=== PATIENT | female | born 1950 | race Caucasian/White ===

== ENCOUNTER 2022-02-13 17:01 | Inpatient (IN) | payer MEDICARE, MEDICAID, SELFPAY ==
[2022-02-13 19:28] VITALS: BP 121/82; PULSE 118; RESP 16; TEMP 36.6; O2SAT 98
[2022-02-13 19:33] VITALS: BMI 24.5
[2022-02-13] MEDS: Phenytoin Sodium Extended 100 MG CAPSULE 300 MG PO (20:45)
[2022-02-13] MEDS: Topiramate 25 MG TABLET 75 MG PO (20:46)
[2022-02-13] MEDS: risperiDONE 0.5 MG TABLET PO (20:46)
[2022-02-13] MEDS: Divalproex Sodium ER 500 MG TAB.ER.24H 1000 MG PO (20:46)
--- NOTE | 2022-02-13 21:59 | PC.ADMIT ---
71 yr old female with a hx of Major Depressive Disorder, anorexia and epilepsy, arrived on the unit at approx. 1714 via stretcher from [facility] ED. She had been sent to [facility] from [facility] d/t concerns regarding depression and possible failure to thrive. They reported that the pt had very poor appetite, had lost weight, felt tired and weak, not leaving her bed often. The pt identified feeling isolated during the COVID pandemic and had continued to stay in bed most of the time. They also reported that her sleep had been poor. Pt signed a CV before entry to the unit. The pt appeared anxious, immediately letting this RN know that she had many medical problems that needed to be addressed more than psych. When offered a drink she stated, water doesn't taste good, juice is too acidic and isabella inge is too strong. For a snack, the pt stated that she had many food allergies and needed to be put on a special diet. The pt also reported hx of HTN, seizures that usually occur at night, sleep apnea but denied using a CPAP, telling this RN, I have been sleeping well without it. Did not have one in her belongings. The pt was cooperative with the admission process, signing the related paperwork. VS WNL. Pt denied SI/HI/AVH at the time. Prior to the admission, the Dr was notified, admission orders were obtained and nurse to nurse was done.Treatment plan was initiated. Pt is on 15 min safety checks.Admits to feeling safe on the unit at this time.
[2022-02-14] MEDS: Omeprazole 20 MG CAPSULE.DR PO (06:34)
[2022-02-14 07:00] VITALS: BP 116/71; PULSE 81; RESP 16; TEMP 36.3; O2SAT 96
[2022-02-14 07:29] LABS: Ammonia 27 umol/L (13-55)
[2022-02-14 07:39] LABS: Estimated Average Glucose 91 mg/dL; Hemoglobin A1c % 4.8 %
[2022-02-14 07:43] LABS: Alanine Aminotransferase 13 U/L (0-31); Alkaline Phosphatase 108 U/L (39-117); Aspartate Amino Transferase 19 U/L (5-31); Bilirubin Direct < 0.2 mg/dL (0.0-0.5); Bilirubin Total 0.2 mg/dL (0.0-1.0); Cholesterol 282 mg/dL; HDL Cholesterol 66 mg/dL; LDL Cholesterol Calculated 182 mg/dl; Total Protein 6.4 g/dL (6.5-8.0); Triglycerides 172 mg/dL
[2022-02-14 08:17] LABS: Reflex LDLD? No
[2022-02-14 08:21] LABS: Phenytoin Dilantin 6.3 ug/mL (10.0-20.0); Valproate 34.3 mcg/mL (50.0-100.0)
[2022-02-14] MEDS: lisinopriL 40 MG TABLET PO (08:54)
[2022-02-14] MEDS: Loratadine 10 MG TABLET PO (08:55)
[2022-02-14] MEDS: Multivitamin TABLET 1 TAB PO (08:55)
[2022-02-14] MEDS: Topiramate 25 MG TABLET 75 MG PO (08:55)
--- NOTE | 2022-02-14 09:40 | P.HPPS_ITS ---
HPI Date of Service: 02/14/22 Chief Complaint: depression/ failure to thrive Sources of Information: patient interviewed, chart reviewed and crisis/core team assessment reviewed HPI Subjective Notes: Conditional Voluntary (claims not ot understand it now- , but did last pm- ) Healthcare Proxy: No Guardianship: No Medical Problems Affecting Mental Status: Yes (hx epilepsy on 3 anticonvulsants- fatigued, gi issues, ) Narrative: Pt reports that 4 years living at current placement in [place] assisted living was isolated as it was then Pandemic hit- was having low muscle tone- she has fatigue and decreased appetite, My diet is so restricted I don't enjoy eating anything Angry that they won't let her eat in her room, though they have offered to let her eat in sensory room- feels she needs to be on medical unit for PT- Says this all started 4 years ago worsened by pandemic unable to go into hallway- isolated to her room, at assisted living, would exercise by walking around her room-could not longer go in [place]- trouble eating food, lost muscle and became deconditioned, feels she has lost all her strength. Denies not taking her medications- but heart trouble (not clear what? dizzy /palpitations) had trouble swallowing pills- couldn't eat much , couldn't tolerate it vague about how she couldn't tolerate it. feels she doesn't have the muscle strength to sit up for even 5 minutes Past Psychiatric History: prior psych hosp at [facility], wouldn't say when, or for what angry that she is on psych unit, thinks she needs medical no outpatient providers Medical Evaluation Reviewed: Yes hx epilepsy - seed Dr Sigrid Wilson - hasn't had appointment with him recently pcp dr Liza hedrick at [facility] Medical History (Updated 02/14/22 @ 21:04 by Susan Umanzor MD) Epilepsy Hypertension Narrative: hx epilepsy hx htn Family History: not obtained Social History: living at assisted living for 4 years, yet address on file is [place] History: hx etoh 20s-30s , Diagnostics Vital Signs (24Hr): Vital Signs - 24 hr 02/13/22 19:28 Temperature 97.8 F Pulse Rate 118 H Respiratory Rate 16 Blood Pressure 121/82 Pulse Oximetry 98 Oxygen Delivery Method Room Air BMI result Body Mass Index 24.5 Labs Labs: Laboratory Results - last 48 hr 02/14/22 02/14/22 02/14/22 07:15 07:15 07:15 Estimat Average Glucose 91 Hemoglobin A1c % 4.8 Total Bilirubin Cancelled Direct Bilirubin Cancelled AST Cancelled ALT Cancelled Alkaline Phosphatase Cancelled Ammonia 27 Total Protein Cancelled Albumin Cancelled Triglycerides Cholesterol LDL Cholesterol, Calc HDL Cholesterol Phenytoin 6.3 L* Valproic Acid 34.3 L 02/14/22 07:15 Estimat Average Glucose Hemoglobin A1c % Total Bilirubin 0.2 Direct Bilirubin < 0.2 AST 19 ALT 13 Alkaline Phosphatase 108 Ammonia Total Protein 6.4 L Albumin 4.0 Triglycerides 172 Cholesterol 282 LDL Cholesterol, Calc 182 HDL Cholesterol 66 Phenytoin Valproic Acid EKG EKG: other (will order if not done at [facility]) Imaging Radiology Impressions: no clear need for imaging Meds/Allergies Meds Home Medications Medication Instructions Recorded Confirmed Type Depakote ER 1,000 mg PO 1XD 02/13/22 02/13/22 History Dilantin Extended 300 mg PO 1XD 02/13/22 02/13/22 History Flonase 50 mg 2XD 02/13/22 02/13/22 History Protonix 40 mg PO 1XD 02/13/22 02/13/22 History Topamax 75 mg PO 2XD 02/13/22 02/13/22 History Ventolin HFA 90 mcg inhalation Q4H PRN wheezing 02/13/22 02/13/22 History lisinopril 40 mg PO 1XD 02/13/22 02/13/22 History loratadine 10 mg PO 1XD 02/13/22 02/13/22 History risperidone 0.5 mg PO 1XD 02/13/22 02/13/22 History Allergies Allergies Allergy/AdvReac Type Severity Reaction Status Date / Time Sulfa (Sulfonamide Allergy Unknown Verified 02/13/22 17:27 Antibiotics) sulfamethoxazole Allergy Unknown Verified 02/13/22 17:27 [From Sulfamethoxazole-Trimethoprim] trimethoprim Allergy Unknown Verified 02/13/22 17:27 [From Sulfamethoxazole-Trimethoprim] Mental Status Exam Mental Status Exam Patient Appearance: Fatigued, Disheveled and Unkempt Patient Orientation: Person, Place, Time and Situation Level of Consciousness: Awake Patient Behavior: Dependent, Resistive to Care, Fatigued and Good Eye Contact Mood Description: Calm and Withdrawn Affect Description: Apprehensive Patient Cognition Impaired: No Ability to Follow Directions: Fair Speech Pattern: Clear and Perseverating Thought Process: Rumination Thought Content: positive for Perseveration Depressive Symptoms: Changes in Appetite, Increased Fatigue and Loss of Energy Judgement: Poor Judgement and Insight: somatic beliefs driving behavior to not get out of bed, and not eat - affecting her health- Assessment & Plan Assessment & Plan (1) Somatic complaints, multiple: Status: Acute Code(s): R68.89 - Other general symptoms and signs Assessment and Plan: continue to listen to somatic concerns; get ekg if not done at [facility] coordinate care with dr Davis (2) Muscular deconditioning: Status: Acute Code(s): R29.898 - Other symptoms and signs involving the musculoskeletal system Assessment and Plan: ? 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: Status: Acute Code(s): F32.9 - Major depressive disorder, single episode, unspecified Assessment and Plan: on risperidone but not antidepressant?, consider remeron add on Plan 71 yo WF with declining state of self care , unable to manage herself at [facility] due to not eating, not getting out of bed, and possibly refusing medicationd due to difficulty swallowing has become more and more isolated in pandemic, with limited social supports Patient educated on: other (cv, need to eat out of room- ) Informed Consent: further education needed Reason for continued inpatient stay Substantial Risk for: inability to function and med/psych decompensation
[2022-02-14 21:11] VITALS: BP 122/65; PULSE 80; RESP 14; TEMP 36.6; O2SAT 98
[2022-02-14] MEDS: Topiramate 25 MG TABLET 50 MG PO (21:45)
[2022-02-14] MEDS: risperiDONE 0.5 MG TABLET PO (21:46)
[2022-02-14] MEDS: Phenytoin Sodium Extended 100 MG CAPSULE 300 MG PO (21:47)
[2022-02-14] MEDS: Divalproex Sodium ER 500 MG TAB.ER.24H 1000 MG PO (21:48)
[2022-02-15 06:00] VITALS: BP 133/61; PULSE 78; RESP 16; TEMP 36.7; O2SAT 97
[2022-02-15] MEDS: Topiramate 25 MG TABLET 50 MG PO (09:25)
[2022-02-15] MEDS: Multivitamin TABLET 1 TAB PO (09:26)
[2022-02-15] MEDS: Loratadine 10 MG TABLET PO (09:27)
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
[2022-02-15] MEDS: Magnesium Hydrox/Alum Hydrox 30 ML ORAL.SUSP PO (16:17)
[2022-02-15 18:00] VITALS: BP 121/60; PULSE 80; RESP 17; TEMP 36.1; O2SAT 96
[2022-02-15] MEDS: Divalproex Sodium ER 500 MG TAB.ER.24H 1000 MG PO (20:12)
[2022-02-15] MEDS: risperiDONE 0.5 MG TABLET PO (20:13)
[2022-02-15] MEDS: Phenytoin Sodium Extended 100 MG CAPSULE 300 MG PO (20:13)
[2022-02-15] MEDS: Topiramate 25 MG TABLET 75 MG PO (20:13)
[2022-02-15] MEDS: Mirtazapine 7.5 MG TABLET PO (20:19)
--- NOTE | 2022-02-16 | ECG_ITS ---
Test Reason : qtc check Blood Pressure : / mmHG Vent. Rate : 077 BPM Atrial Rate : 077 BPM P-R Int : 134 ms QRS Dur : 082 ms QT Int : 394 ms P-R-T Axes : 058 045 031 degrees QTc Int : 445 ms Normal sinus rhythm Normal ECG No previous ECGs available Referred By: Susan Umanzor Electronically Signed By:Damion Orona
[2022-02-16] MEDS: Omeprazole 20 MG CAPSULE.DR PO (05:37)
[2022-02-16 06:00] VITALS: BP 115/56; PULSE 88; RESP 14; TEMP 36.4; O2SAT 96
--- NOTE | 2022-02-16 07:19 | P.CONIM_ITS ---
History of Present Illness Data of Consult Service Date: 02/16/22 Primary Care Provider: Unknown Physician HPI Reason for consult: Medical evaluation A 71 years old lady with PMH of epilepsy, anxiety, depression among others who presents to the inpatient [facility] for anorexia. The patient reported that since the COVID she has been on quarantine at the facility and barely able to do any physical activity. She is feeling much weaker overall and has no appetite to eat. She reported having seizure disorder which buried in presentation over the years. She had a grand mass seizures when she were younger but for the last few years her seizure attacks are coming mainly at nighttime an RPR chill with abnormal movement but no loss of conscious. She reports taking Depakote, Topamax and Dilantin. Hospitalist team asked to evaluate the patient for her medical problems. Review of Systems Review of Systems: No fever, chills or weakness No chest pain, palpitation No shortness of breath or coughing No abdominal pain, nausea or vomiting No urinary symptoms No any rash or wounds PMFSH Medical History (Updated 02/16/22 @ 14:22 by Ramya Villanueva MD) Epilepsy Hypertension Social History Household Members: Other Housing: Assisted Living Facility Do you presently have visiting nurse or other home services: Yes Unable to assess alcohol history related to: Unknown Patient Tobacco Use Status: Former Tobacco user Smoked in Last 30 Days: No e-Cigarette/Vaping Use: Former Use Patient Interested in Nicotine Replacement: No Patient Given Instructions on How to Stop Smoking: No Second Hand Smoke Exposure: No Use of substances other than those prescribed or required for medical reasons: No Currently Displaying Signs/Symptoms of Drug Intoxication Withdrawal: No Any prior treatment program specific to substance use: No Have you been hit, kicked, punched, or otherwise hurt by someone within the past year? If so, by whom?: No Do you feel safe in your current relationship?: No Current Relationship Is there a partner from a previous relationship who is making you feel unsafe no w?: No Are you made to feel afraid or neglected: No Advance Directives: No Advance Directives Information Provided: No Do you have thoughts of harming others: None Do you have a plan to hurt others: No Plan Recently lost weight without trying: Unsure How much weight loss: Unsure Eating poorly because of decreased appetite: Yes Nutrition screen score: 5 Nutrition Risks: Anorexia and Poor intake 0-25% >4 days Patient : No : No Poor oral hygiene: No Meds Allergies Allergy/AdvReac Type Severity Reaction Status Date / Time Sulfa (Sulfonamide Allergy Unknown Verified 02/13/22 17:27 Antibiotics) sulfamethoxazole Allergy Unknown Verified 02/13/22 17:27 [From Sulfamethoxazole-Trimethoprim] trimethoprim Allergy Unknown Verified 02/13/22 17:27 [From Sulfamethoxazole-Trimethoprim] Active Medications: Current Medications Acetaminophen (Acetaminophen 325 Mg Tablet) 650 mg PO Q6H PRN PRN Reason: Headache/Pain Mild Scale (1-3) Al Hydroxide/Mg Hydroxide (Magnesium Hydrox/Alum Hydrox 30 Ml Oral.Susp) 30 ml PO Q6H PRN PRN Reason: Heartburn/Nausea Last Admin: 02/15/22 16:17 Dose: 30 ml Albuterol Sulfate (Albuterol Sulfate 90 Mcg 18 Gm Inhaler) 1 puff INHALE Q4H PRN PRN Reason: wheezing Divalproex Sodium (Divalproex Sodium Er 500 Mg Tab.Er.24h) 1,000 mg PO BEDTIME [facility] Last Admin: 02/15/22 20:12 Dose: 1,000 mg Fluticasone Propionate (Fluticasone Propionate Nasal 16 Gm [place]) 1 spray NOSTRIL-B BID [facility] Last Admin: 02/15/22 20:13 Dose: Not Given Lisinopril (Lisinopril 40 Mg Tablet) 40 mg PO DAILY [facility] Last Admin: 02/15/22 09:23 Dose: Not Given Loratadine (Loratadine 10 Mg Tablet) 10 mg PO DAILY [facility] Last Admin: 02/15/22 09:27 Dose: 10 mg Lorazepam (Lorazepam 0.5 Mg Tablet) 0.5 mg PO DAILY PRN PRN Reason: anxiety Magnesium Hydroxide (Milk Of Magnesia 30 Ml Oral.Susp) 30 ml PO DAILY PRN PRN Reason: Constipation Mirtazapine (Mirtazapine 7.5 Mg Tablet) 7.5 mg PO BEDTIME [facility] Last Admin: 02/15/22 20:19 Dose: 7.5 mg Multivitamins/Vitamin C (Multivitamin Tablet) 1 tab PO DAILY [facility] Last Admin: 02/15/22 09:26 Dose: 1 tab Omeprazole (Omeprazole 20 Mg Capsule.Dr) 20 mg PO DAILY@0630 [facility] Last Admin: 02/16/22 05:37 Dose: 20 mg Phenytoin Sodium (Phenytoin Sodium Extended 100 Mg Capsule) 300 mg PO BEDTIME [facility] Last Admin: 02/15/22 20:13 Dose: 300 mg Risperidone (Risperidone 0.5 Mg Tablet) 0.5 mg PO BEDTIME [facility] Last Admin: 02/15/22 20:13 Dose: 0.5 mg Topiramate (Topiramate 25 Mg Tablet) 75 mg PO BID [facility] Last Admin: 02/15/22 20:13 Dose: 75 mg Home Medications Medication Instructions Recorded Confirmed Last Taken Type Depakote ER 1,000 mg PO 1XD 02/13/22 02/13/22 Unknown History Dilantin Extended 300 mg PO 1XD 02/13/22 02/13/22 Unknown History Flonase 50 mg 2XD 02/13/22 02/13/22 Unknown History Protonix 40 mg PO 1XD 02/13/22 02/13/22 Unknown History Topamax 75 mg PO 2XD 02/13/22 02/13/22 Unknown History Ventolin HFA 90 mcg inhalation Q4H PRN wheezing 02/13/22 02/13/22 Unknown History lisinopril 40 mg PO 1XD 02/13/22 02/13/22 Unknown History loratadine 10 mg PO 1XD 02/13/22 02/13/22 Unknown History risperidone 0.5 mg PO 1XD 02/13/22 02/13/22 Unknown History Physical Exam Vital Signs and Narrative: Vital Signs: Last Vital Signs Temp 96.9 F 02/15/22 18:00 Pulse 80 02/15/22 18:00 Resp 17 02/15/22 18:00 BP 121/60 02/15/22 18:00 Pulse Ox 96 02/15/22 18:00 O2 Del Method 02/15/22 18:00 BMI result Body Mass Index 24.5 Const: Other: Constitutional : Alert, oriented, not in distress Neck : Normal inspection, Supple Cardiovascular : RRR, no JVP, no lower extremity edema Respiratory : fair bilateral air entry, no crackles, wheezes or rhonchi Gastrointestinal: soft, lax, Normal bowel sounds, Non tender Skin : Warm, Dry Neurological : Alert & oriented x3, No focal deficit , CN 2-12 within normal Results Labs CBC and Chem 7: 02/16/22 08:42 02/16/22 08:42 Assessment and Plan (1) Epilepsy: Status: Acute Plan A 71 years old lady with PMH of epilepsy, anxiety, depression among others who presents to the inpatient [facility] for anorexia. Anorexia Evaluation per Psychiatry team Hypertension continue lisinopril Seizure disorder continue Depakote, Dilantin and Topamax Thank you for the consult, intact hospitalist team with any further questions.
[2022-02-16 08:40] LABS: Folate 18.9 ng/mL (> or = 4.0); Vitamin B12 808 pg/mL (200-900)
[2022-02-16 08:46] LABS: MANUAL DIFF FLAG NO
[2022-02-16 08:50] LABS: Eosinophils Absolute Auto 0.1 X10*3/uL (0.0-0.4); Eosinophils Percent Auto 3.5 % (0-4); Hematocrit 39.9 % (37.0-47.0); Hemoglobin 13.4 g/dl (12.0-16.0); Imm Gran Abs Auto 0.01 X10*3/uL (0.00-0.03); Imm Gran Pct Auto 0.3 % (0.0-0.4); Lymphocytes Absolute Auto 1.6 X10*3/uL (1.2-4.9); Lymphocytes Percent Auto 40.9 % (20-40); Mean Corpuscular HGB Conc 33.6 g/dl (31.0-35.0); Mean Corpuscular Hemoglobin 31.9 pg (27.0-33.0); Monocytes Absolute Auto 0.2 X10*3/uL (0.1-1.2); Monocytes Percent Auto 5.8 % (2-11); Neutrophils Absolute Auto 1.9 x10*3/uL (2.0-8.3); Neutrophils Percent Auto 48.5 % (45-73); Platelet Count 219 X10*3/uL (160-400); Red Cell Distribution Width 11.2 % (11.0-16.0)
[2022-02-16 09:06] LABS: Alanine Aminotransferase 15 U/L (0-31); Albumin Level 4.2 g/dL (3.5-5.0); Alkaline Phosphatase 114 U/L (39-117); Anion Gap 15 (12-20); Aspartate Amino Transferase 21 U/L (5-31); Bilirubin Total 0.3 mg/dL (0.0-1.0); Blood Urea Nitrogen 18 mg/dL (9-16); Carbon Dioxide 26 mmol/L (22-29); Chloride 103 mmol/L (96-108); Creatinine Clr Calc Pharmacy 49.4; Estimated Glomerular Filt Rate > 60; Glucose Random 111 mg/dL (60-115); Potassium 4.2 mmol/L (3.3-5.1); Sodium 140 mmol/L (135-145); Total Protein 6.8 g/dL (6.5-8.0)
[2022-02-16] MEDS: Topiramate 25 MG TABLET 75 MG PO ×2 (11:13→20:40)
[2022-02-16] MEDS: Loratadine 10 MG TABLET PO (11:14)
[2022-02-16] MEDS: Multivitamin TABLET 1 TAB PO (11:14)
[2022-02-16] MEDS: lisinopriL 40 MG TABLET PO (11:14)
[2022-02-16 12:52] LABS: COVID-19 Test Negative (Negative)
--- NOTE | 2022-02-16 15:40 | P.PNPSI_ITS ---
Subjective Subjective Date of Service: 02/16/22 Reason For Visit: depression/ failure to thrive Subjective Notes: Conditional Voluntary Interim History: the nursing staff reported the patient has been mostly of the time her room since she is scared of COVID. She was demanding, complaining about her diet and refusing to eat certain foods. On interview I explained her that I change her diet to gluten free and lactose- free and we will work on speech and Swallow. Mental Status Exam Mental Status Exam Patient Appearance: Well Grooomed Patient Orientation: Person and Situation Level of Consciousness: Awake Patient Behavior: Cooperative Mood Description: Withdrawn Affect Description: Constricted Patient Cognition Impaired: No Ability to Follow Directions: Good Speech Pattern: Clear Hallucinations: None Delusions: Not Present Thought Process: Linear Thought Content: positive for [place] and positive for Poverty of Content Judgement: Fair Diagnostics Vital Signs (24Hr): Vital Signs - 24 hr 02/15/22 18:00 02/16/22 06:00 Temperature 96.9 F 97.6 F Pulse Rate 80 88 Respiratory Rate 17 14 Blood Pressure 121/60 115/56 L Pulse Oximetry 96 96 Oxygen Delivery Method Room Air Room Air BMI result Body Mass Index 24.5 Labs Results: 02/16/22 08:42 02/16/22 08:42 Labs: Laboratory Results - last 48 hr 02/14/22 02/16/22 02/16/22 07:15 08:42 08:42 WBC 4.0 L RBC 4.20 Hgb 13.4 Hct 39.9 MCV 95.0 MCH 31.9 MCHC 33.6 RDW 11.2 Plt Count 219 MPV 11.0 Immature Gran % (Auto) 0.3 Neut % (Auto) 48.5 Lymph % (Auto) 40.9 H [place] % (Auto) 5.8 Eos % (Auto) 3.5 Baso % (Auto) 1.0 Lymph # (Auto) 1.6 Potter # (Auto) 0.2 Eos # (Auto) 0.1 Baso # (Auto) 0.0 Abs Immat Gran (auto) 0.01 Absolute Neuts (auto) 1.9 L Absolute Nucleated RBC 0.000 Nucleated RBC % (auto) 0.0 Sodium 140 Potassium 4.2 Chloride 103 Carbon Dioxide 26 Anion Gap 15 BUN 18 H Creatinine 0.91 Estim Creat Clear Calc 49.4 Estimated GFR > 60 Random Glucose 111 Calcium 9.0 Total Bilirubin 0.3 AST 21 ALT 15 Alkaline Phosphatase 114 Total Protein 6.8 Albumin 4.2 Vitamin B12 808 Folate 18.9 COVID-19 (ANA) COVID-19 Clin Com 02/16/22 12:20 WBC RBC Hgb Hct MCV MCH MCHC RDW Plt Count MPV Immature Gran % (Auto) Neut % (Auto) Lymph % (Auto) Potter % (Auto) Eos % (Auto) Baso % (Auto) Lymph # (Auto) Potter # (Auto) Eos # (Auto) Baso # (Auto) Abs Immat Gran (auto) Absolute Neuts (auto) Absolute Nucleated RBC Nucleated RBC % (auto) Sodium Potassium Chloride Carbon Dioxide Anion Gap BUN Creatinine Estim Creat Clear Calc Estimated GFR Random Glucose Calcium Total Bilirubin AST ALT Alkaline Phosphatase Total Protein Albumin Vitamin B12 Folate COVID-19 (ANA) Negative COVID-19 Clin Com See Note Medications Medications Current Medications Acetaminophen (Acetaminophen 325 Mg Tablet) 650 mg PO Q6H PRN PRN Reason: Headache/Pain Mild Scale (1-3) Al Hydroxide/Mg Hydroxide (Magnesium Hydrox/Alum Hydrox 30 Ml Oral.Susp) 30 ml PO Q6H PRN PRN Reason: Heartburn/Nausea Last Admin: 02/15/22 16:17 Dose: 30 ml Albuterol Sulfate (Albuterol Sulfate 90 Mcg 18 Gm Inhaler) 1 puff INHALE Q4H PRN PRN Reason: wheezing Divalproex Sodium (Divalproex Sodium Er 500 Mg Tab.Er.24h) 1,000 mg PO BEDTIME [facility] Last Admin: 02/15/22 20:12 Dose: 1,000 mg Fluticasone Propionate (Fluticasone Propionate Nasal 16 Gm [place]) 1 spray NOSTRIL-B BID [facility] Last Admin: 02/16/22 11:13 Dose: Not Given Lisinopril (Lisinopril 40 Mg Tablet) 40 mg PO DAILY [facility] Last Admin: 02/16/22 11:14 Dose: 40 mg Loratadine (Loratadine 10 Mg Tablet) 10 mg PO DAILY [facility] Last Admin: 02/16/22 11:14 Dose: 10 mg Lorazepam (Lorazepam 0.5 Mg Tablet) 0.5 mg PO DAILY PRN PRN Reason: anxiety Magnesium Hydroxide (Milk Of Magnesia 30 Ml Oral.Susp) 30 ml PO DAILY PRN PRN Reason: Constipation Mirtazapine (Mirtazapine 7.5 Mg Tablet) 7.5 mg PO BEDTIME [facility] Last Admin: 02/15/22 20:19 Dose: 7.5 mg Multivitamins/Vitamin C (Multivitamin Tablet) 1 tab PO DAILY [facility] Last Admin: 02/16/22 11:14 Dose: 1 tab Omeprazole (Omeprazole 20 Mg Capsule.Dr) 20 mg PO DAILY@0630 [facility] Last Admin: 02/16/22 05:37 Dose: 20 mg Phenytoin Sodium (Phenytoin Sodium Extended 100 Mg Capsule) 300 mg PO BEDTIME [facility] Last Admin: 02/15/22 20:13 Dose: 300 mg Risperidone (Risperidone 0.5 Mg Tablet) 0.5 mg PO BEDTIME [facility] Last Admin: 02/15/22 20:13 Dose: 0.5 mg Topiramate (Topiramate 25 Mg Tablet) 75 mg PO BID [facility] Last Admin: 02/16/22 11:13 Dose: 75 mg Allergies Allergies Allergy/AdvReac Type Severity Reaction Status Date / Time Sulfa (Sulfonamide Allergy Unknown Verified 02/13/22 17:27 Antibiotics) sulfamethoxazole Allergy Unknown Verified 02/13/22 17:27 [From Sulfamethoxazole-Trimethoprim] trimethoprim Allergy Unknown Verified 02/13/22 17:27 [From Sulfamethoxazole-Trimethoprim] Assessment & Plan Assessment & Plan (1) Epilepsy: Status: Acute Code(s): G40.909 - Epilepsy, unspecified, not intractable, without status epilepticus Plan A 71 years old lady with PMH of epilepsy, anxiety, depression among others who presents to the inpatient [facility] for anorexia. Anorexia Evaluation per Psychiatry team Hypertension continue lisinopril Seizure disorder continue Depakote, Dilantin and Topamax Thank you for the consult, intact hospitalist team with any further questions. I spent __20____ minutes with the patient and/or on the patient floor today, greater than?50% of which was spent counseling/coordinating care. Reason for contiued inpatient stay Substantial Risk for: inability to function, rapid decompensation and med/psych decompensation
[2022-02-16 18:00] VITALS: BP 130/68; PULSE 103; RESP 18; TEMP 37.1; O2SAT 98
[2022-02-16] MEDS: Divalproex Sodium ER 500 MG TAB.ER.24H 1000 MG PO (20:38)
[2022-02-16] MEDS: Mirtazapine 7.5 MG TABLET PO (20:39)
[2022-02-16] MEDS: Phenytoin Sodium Extended 100 MG CAPSULE 300 MG PO (20:39)
[2022-02-16] MEDS: risperiDONE 0.5 MG TABLET PO (20:40)
[2022-02-17 06:00] VITALS: BP 121/72; PULSE 68; RESP 18; TEMP 37.1; O2SAT 98
[2022-02-17] MEDS: Omeprazole 20 MG CAPSULE.DR PO (06:25)
[2022-02-17] MEDS: lisinopriL 40 MG TABLET PO (09:43)
[2022-02-17] MEDS: Loratadine 10 MG TABLET PO (09:43)
[2022-02-17] MEDS: Multivitamin TABLET 1 TAB PO (09:43)
[2022-02-17] MEDS: Topiramate 25 MG TABLET 75 MG PO ×2 (09:43→20:29)
--- NOTE | 2022-02-17 13:32 | MHC.SL.SWA ---
Speech Pathologist Impression: Risk of Aspiration Due to: Poor PO Intake Dysphasia Diet Status: Pt reports swallow study done at [facility], all WFL. As Swallow WFL on this evaluation, will discharge from Speech Services at this time. If additional concerns arise, please re-contact. Liquid Consistency and Strategies for Safe Swallow: Liquid Intake Recommendation: Thin Liquid Intake Strategies: Unrestricted Solid Food Consistency: Dietary Recommendations: Regular Additional Modifications to Solid Foods: Encourage patient to participate in selecting foods and liquids she prefers and would like to eat Oral Medication Intake: Whole with Liquid Please contact the pharmacy regarding appropriate crushable or liquid drug formulations that are available whenever modified delivery is recommended. Compensatory Strategies and Precautions to be Taken for Safe Swallow: Sitting Upright (90 deg) Small Bites and Sips Alternate Liquids/Solids Supervision While Eating and Drinking for Safe Swallow: Intermittent Supervision Foods to Avoid: Swallowing Recommended Treatments: Recommendation for Speech: NA:Typical Evaluation Comment: On limited assessment due to patients rejection of foods of more advanced consistencies, Pt presents with swallow WFL. Pt did have c/o backwash of liquid up nose when given cold water, however did not evidence this on liquids taken with straw, nor did symptoms or difficulties persist after initial complaint. As oral motor is WFL, and there is otherwise no indication of motoric impairment, recommend Patient continue on REGULAR DIET with THIN LIQUIDS, Pills WHOLE w/ Liquid as tolerated. Patient will need encouragement to participate in proactively selecting foods she can eat, and should be encouraged to identify and eat preferred foods. Recommendations communicated to IMMANUEL LARA by secure text, discussed with Nursing on the floor. Recommend D/C speech services as swallow WFL. Please re-contact if additional concerns arise. Frequency/Duration: Date Range for Service Req: Timeline to reassess: Subsurface Augmentee Elint Operator Clinican/Clinical Fellow: No Supervisory Statement: I have reviewed and agree with the student/clinical fellow's documentation: N/A Speech Language Pathologist: Maral Sharma M.A., CCC-GREETING CARD WRITER
--- NOTE | 2022-02-17 14:25 | HO.PSYCHPN ---
Subjective Subjective Date of Service: 02/17/22 Reason For Visit: depression/ failure to thrive Subjective Notes: Conditional Voluntary Interim History: The nursing staff reported that she slept 7 hours, denied suicidal thoughts. Yesterday, she was assessed by speech and swallow and she didn't cooperate but no changes on her diet. On interview, she denied new symptoms Mental Status Exam Mental Status Exam Patient Appearance: Well Grooomed Patient Orientation: Person Level of Consciousness: Awake Patient Behavior: Appropriate Mood Description: Suspicious Affect Description: Calm and Suspicious Patient Cognition Impaired: No Ability to Follow Directions: Good Speech Pattern: Clear Hallucinations: None Delusions: Paranoid Ideation Thought Process: Illogical Judgement: Fair Diagnostics Vital Signs (24Hr): Vital Signs - 24 hr 02/16/22 18:00 02/17/22 06:00 Temperature 98.8 F 98.7 F Pulse Rate 103 H 68 Respiratory Rate 18 18 Blood Pressure 130/68 121/72 Pulse Oximetry 98 98 Oxygen Delivery Method Room Air Room Air BMI result Body Mass Index 24.5 Labs Results: 02/16/22 08:42 02/16/22 08:42 Labs: Laboratory Results - last 48 hr 02/14/22 02/16/22 02/16/22 07:15 08:42 08:42 WBC 4.0 L RBC 4.20 Hgb 13.4 Hct 39.9 MCV 95.0 MCH 31.9 MCHC 33.6 RDW 11.2 Plt Count 219 MPV 11.0 Immature Gran % (Auto) 0.3 Neut % (Auto) 48.5 Lymph % (Auto) 40.9 H [place] % (Auto) 5.8 Eos % (Auto) 3.5 Baso % (Auto) 1.0 Lymph # (Auto) 1.6 [place] # (Auto) 0.2 Eos # (Auto) 0.1 Baso # (Auto) 0.0 Abs Immat Gran (auto) 0.01 Absolute Neuts (auto) 1.9 L Absolute Nucleated RBC 0.000 Nucleated RBC % (auto) 0.0 Sodium 140 Potassium 4.2 Chloride 103 Carbon Dioxide 26 Anion Gap 15 BUN 18 H Creatinine 0.91 Estim Creat Clear Calc 49.4 Estimated GFR > 60 Random Glucose 111 Calcium 9.0 Total Bilirubin 0.3 AST 21 ALT 15 Alkaline Phosphatase 114 Total Protein 6.8 Albumin 4.2 Vitamin B12 808 Folate 18.9 COVID-19 (ANA) COVID-19 Clin Com 02/16/22 12:20 WBC RBC Hgb Hct MCV MCH MCHC RDW Plt Count MPV Immature Gran % (Auto) Neut % (Auto) Lymph % (Auto) [place] % (Auto) Eos % (Auto) Baso % (Auto) Lymph # (Auto) [place] # (Auto) Eos # (Auto) Baso # (Auto) Abs Immat Gran (auto) Absolute Neuts (auto) Absolute Nucleated RBC Nucleated RBC % (auto) Sodium Potassium Chloride Carbon Dioxide Anion Gap BUN Creatinine Estim Creat Clear Calc Estimated GFR Random Glucose Calcium Total Bilirubin AST ALT Alkaline Phosphatase Total Protein Albumin Vitamin B12 Folate COVID-19 (ANA) Negative COVID-19 Clin Com See Note Medications Medications Current Medications Acetaminophen (Acetaminophen 325 Mg Tablet) 650 mg PO Q6H PRN PRN Reason: Headache/Pain Mild Scale (1-3) Al Hydroxide/Mg Hydroxide (Magnesium Hydrox/Alum Hydrox 30 Ml Oral.Susp) 30 ml PO Q6H PRN PRN Reason: Heartburn/Nausea Last Admin: 02/15/22 16:17 Dose: 30 ml Albuterol Sulfate (Albuterol Sulfate 90 Mcg 18 Gm Inhaler) 1 puff INHALE Q4H PRN PRN Reason: wheezing Divalproex Sodium (Divalproex Sodium Er 500 Mg Tab.Er.24h) 1,000 mg PO BEDTIME [facility] Last Admin: 02/16/22 20:38 Dose: 1,000 mg Fluticasone Propionate (Fluticasone Propionate Nasal 16 Gm [place]) 1 spray NOSTRIL-B BID [facility] Last Admin: 02/17/22 09:47 Dose: Not Given Lisinopril (Lisinopril 40 Mg Tablet) 40 mg PO DAILY [facility] Last Admin: 02/17/22 09:43 Dose: 40 mg Loratadine (Loratadine 10 Mg Tablet) 10 mg PO DAILY [facility] Last Admin: 02/17/22 09:43 Dose: 10 mg Lorazepam (Lorazepam 0.5 Mg Tablet) 0.5 mg PO DAILY PRN PRN Reason: anxiety Magnesium Hydroxide (Milk Of Magnesia 30 Ml Oral.Susp) 30 ml PO DAILY PRN PRN Reason: Constipation Mirtazapine (Mirtazapine 7.5 Mg Tablet) 7.5 mg PO BEDTIME [facility] Last Admin: 07/18/22 20:39 Dose: 7.5 mg Multivitamins/Vitamin C (Multivitamin Tablet) 1 tab PO DAILY [facility] Last Admin: 02/17/22 09:43 Dose: 1 tab Omeprazole (Omeprazole 20 Mg Capsule.) 20 mg PO DAILY@0630 [facility] Last Admin: 02/17/22 06:25 Dose: 20 mg Phenytoin Sodium (Phenytoin Sodium Extended 100 Mg Capsule) 300 mg PO BEDTIME [facility] Last Admin: 02/16/22 20:39 Dose: 300 mg Risperidone (Risperidone 0.5 Mg Tablet) 0.5 mg PO BEDTIME [facility] Last Admin: 02/16/22 20:40 Dose: 0.5 mg Topiramate (Topiramate 25 Mg Tablet) 75 mg PO BID [facility] Last Admin: 02/17/22 09:43 Dose: 75 mg Allergies Allergies Allergy/AdvReac Type Severity Reaction Status Date / Time Sulfa (Sulfonamide Allergy Unknown Verified 02/13/22 17:27 Antibiotics) sulfamethoxazole Allergy Unknown Verified 02/13/22 17:27 [From Sulfamethoxazole-Trimethoprim] trimethoprim Allergy Unknown Verified 02/13/22 17:27 [From Sulfamethoxazole-Trimethoprim] Assessment & Plan Assessment & Plan (1) Epilepsy: Status: Acute Code(s): G40.909 - Epilepsy, unspecified, not intractable, without status epilepticus Plan A 71 years old lady with PMH of epilepsy, anxiety, depression among others who presents to the inpatient [facility] for anorexia. Anorexia Evaluation per Psychiatry team Hypertension continue lisinopril Seizure disorder continue Depakote, Dilantin and Topamax Thank you for the consult, intact hospitalist team with any further questions. I spent ___20___ minutes with the patient and/or on the patient floor today, greater than?50% of which was spent counseling/coordinating care. Reason for contiued inpatient stay Substantial Risk for: inability to function, rapid decompensation and med/psych decompensation
[2022-02-17 18:00] VITALS: BP 101/55; PULSE 82; RESP 18; TEMP 36.7; O2SAT 96
[2022-02-17] MEDS: Divalproex Sodium ER 500 MG TAB.ER.24H 1000 MG PO (20:28)
[2022-02-17] MEDS: Mirtazapine 7.5 MG TABLET PO (20:28)
[2022-02-17] MEDS: risperiDONE 0.5 MG TABLET PO (20:29)
[2022-02-17] MEDS: Phenytoin Sodium Extended 100 MG CAPSULE 300 MG PO (20:29)
[2022-02-18] MEDS: Omeprazole 20 MG CAPSULE.DR PO (06:46)
[2022-02-18 07:30] VITALS: BP 121/78; PULSE 99; RESP 16; TEMP 36.1; O2SAT 97
[2022-02-18] MEDS: Topiramate 25 MG TABLET 75 MG PO ×2 (08:30→20:49)
[2022-02-18] MEDS: Multivitamin TABLET 1 TAB PO (08:31)
[2022-02-18] MEDS: lisinopriL 40 MG TABLET PO (08:31)
[2022-02-18] MEDS: Loratadine 10 MG TABLET PO (08:31)
[2022-02-18 09:42] LABS: TSH reflex Free T4 3.73 uIU/mL (0.32-4.0)
[2022-02-18 13:48] VITALS: BMI 24.5
--- NOTE | 2022-02-18 15:57 | HO.PSYCHPN ---
Subjective Subjective Date of Service: 02/18/22 Reason For Visit: depression/ failure to thrive Subjective Notes: Conditional Voluntary Interim History: The patient denies active suicidal ideation, denies side effects with medications no evidence of new seizures. According to the staff she ate 70% of her foot. On interview, the patient reported that since COVID started she has been very scared and anxious of getting the disease. Also she was been more anxious, unable to interact well with other residents in her assisted living facility. No safety concerns at this moment Mental Status Exam Mental Status Exam Patient Appearance: Well Grooomed Patient Orientation: Person and Situation Level of Consciousness: Awake Patient Behavior: Cooperative Mood Description: Constricted Affect Description: Calm Patient Cognition Impaired: No Ability to Follow Directions: Good Speech Pattern: Clear Hallucinations: None Delusions: Not Present Thought Process: Linear Thought Content: positive for [place] Oriented Judgement: Fair Diagnostics Vital Signs (24Hr): Vital Signs - 24 hr 02/17/22 18:00 02/18/22 07:30 Temperature 98.1 F 97.0 F Pulse Rate 82 99 Respiratory Rate 18 16 Blood Pressure 101/55 L 121/78 Pulse Oximetry 96 97 Oxygen Delivery Method Room Air Room Air BMI result Body Mass Index 24.5 Labs Results: 02/16/22 08:42 02/16/22 08:42 Labs: Laboratory Results - last 48 hr 02/18/22 07:46 TSH 3.73 Medications Medications Current Medications Acetaminophen (Acetaminophen 325 Mg Tablet) 650 mg PO Q6H PRN PRN Reason: Headache/Pain Mild Scale (1-3) Al Hydroxide/Mg Hydroxide (Magnesium Hydrox/Alum Hydrox 30 Ml Oral.Susp) 30 ml PO Q6H PRN PRN Reason: Heartburn/Nausea Last Admin: 02/15/22 16:17 Dose: 30 ml Albuterol Sulfate (Albuterol Sulfate 90 Mcg 18 Gm Inhaler) 1 puff INHALE Q4H PRN PRN Reason: wheezing Divalproex Sodium (Divalproex Sodium Er 500 Mg Tab.Er.24h) 1,000 mg PO BEDTIME [facility] Last Admin: 02/17/22 20:28 Dose: 1,000 mg Fluticasone Propionate (Fluticasone Propionate Nasal 16 Gm [place]) 1 spray NOSTRIL-B BID [facility] Last Admin: 02/18/22 08:30 Dose: Not Given Lisinopril (Lisinopril 40 Mg Tablet) 40 mg PO DAILY [facility] Last Admin: 02/18/22 08:31 Dose: 40 mg Loratadine (Loratadine 10 Mg Tablet) 10 mg PO DAILY [facility] Last Admin: 02/18/22 08:31 Dose: 10 mg Lorazepam (Lorazepam 0.5 Mg Tablet) 0.5 mg PO DAILY PRN PRN Reason: anxiety Magnesium Hydroxide (Milk Of Magnesia 30 Ml Oral.Susp) 30 ml PO DAILY PRN PRN Reason: Constipation Mirtazapine (Mirtazapine 7.5 Mg Tablet) 7.5 mg PO BEDTIME [facility] Last Admin: 02/17/22 20:28 Dose: 7.5 mg Multivitamins/Vitamin C (Multivitamin Tablet) 1 tab PO DAILY [facility] Last Admin: 02/18/22 08:31 Dose: 1 tab Omeprazole (Omeprazole 20 Mg Capsule.Dr) 20 mg PO DAILY@0630 [facility] Last Admin: 02/18/22 06:46 Dose: 20 mg Phenytoin Sodium (Phenytoin Sodium Extended 100 Mg Capsule) 300 mg PO BEDTIME [facility] Last Admin: 02/17/22 20:29 Dose: 300 mg Risperidone (Risperidone 0.5 Mg Tablet) 0.5 mg PO BEDTIME [facility] Last Admin: 02/17/22 20:29 Dose: 0.5 mg Topiramate (Topiramate 25 Mg Tablet) 75 mg PO BID [facility] Last Admin: 02/18/22 08:30 Dose: 75 mg Allergies Allergies Allergy/AdvReac Type Severity Reaction Status Date / Time Sulfa (Sulfonamide Allergy Unknown Verified 02/13/22 17:27 Antibiotics) sulfamethoxazole Allergy Unknown Verified 02/13/22 17:27 [From Sulfamethoxazole-Trimethoprim] trimethoprim Allergy Unknown Verified 02/13/22 17:27 [From Sulfamethoxazole-Trimethoprim] Assessment & Plan Assessment & Plan (1) Epilepsy: Status: Acute Code(s): G40.909 - Epilepsy, unspecified, not intractable, without status epilepticus Plan A 71 years old lady with PMH of epilepsy, anxiety, depression among others who presents to the inpatient [facility] for anorexia. Anorexia Evaluation per Psychiatry team Hypertension continue lisinopril Seizure disorder continue Depakote, Dilantin and Topamax I spent ___20___ minutes with the patient and/or on the patient floor today, greater than?50% of which was spent counseling/coordinating care. Reason for contiued inpatient stay Substantial Risk for: inability to function, rapid decompensation and med/psych decompensation
[2022-02-18 18:00] VITALS: BP 143/70; PULSE 98; TEMP 36.9; O2SAT 97
[2022-02-18] MEDS: Phenytoin Sodium Extended 100 MG CAPSULE 300 MG PO (20:49)
[2022-02-18] MEDS: Divalproex Sodium ER 500 MG TAB.ER.24H 1000 MG PO (20:49)
[2022-02-18] MEDS: risperiDONE 0.5 MG TABLET PO (20:49)
[2022-02-18] MEDS: Mirtazapine 7.5 MG TABLET PO (20:50)
[2022-02-19] MEDS: Omeprazole 20 MG CAPSULE.DR PO (05:33)
[2022-02-19 07:00] VITALS: BMI 24.0
[2022-02-19 09:10] VITALS: BP 136/66; PULSE 90; TEMP 36.4; O2SAT 97
[2022-02-19] MEDS: lisinopriL 40 MG TABLET PO (09:15)
[2022-02-19] MEDS: Multivitamin TABLET 1 TAB PO (09:15)
[2022-02-19] MEDS: Loratadine 10 MG TABLET PO (09:15)
[2022-02-19] MEDS: Topiramate 25 MG TABLET 75 MG PO ×2 (09:15→21:13)
--- NOTE | 2022-02-19 16:21 | P.PNPSI_ITS ---
Subjective Subjective Date of Service: 02/19/22 Reason For Visit: depression/ failure to thrive Subjective Notes: Conditional Voluntary Interim History: The nursing staff reported the patient has been mostly in her room isolative but alert and oriented. She reports some dysphoria but no suicidal ideations no safety concerns. On interview the patient reported that she feels over 1 point people are telling him about how much she should eat. No new seizures.. She is very somatically preoccupied regarding her seizures and stated that she had seizures while s leeping but she looks attention seeking Mental Status Exam Mental Status Exam Patient Appearance: Well Grooomed Patient Orientation: Person and Situation Level of Consciousness: Awake Patient Behavior: Guarded Mood Description: Withdrawn Affect Description: Constricted Patient Cognition Impaired: No Ability to Follow Directions: Good Speech Pattern: Clear Hallucinations: None Delusions: Not Present Thought Process: Distracted Thought Content: positive for Poverty of Content Judgement: Fair Diagnostics Vital Signs (24Hr): Vital Signs - 24 hr 02/18/22 18:00 02/19/22 09:10 Temperature 98.4 F 97.6 F Pulse Rate 98 90 Blood Pressure 143/70 H 136/66 Pulse Oximetry 97 97 Oxygen Delivery Method Room Air Room Air BMI result Body Mass Index 24.5 Labs Results: 02/16/22 08:42 02/16/22 08:42 Labs: Laboratory Results - last 48 hr 02/18/22 07:46 TSH 3.73 Medications Medications Current Medications Acetaminophen (Acetaminophen 325 Mg Tablet) 650 mg PO Q6H PRN PRN Reason: Headache/Pain Mild Scale (1-3) Al Hydroxide/Mg Hydroxide (Magnesium Hydrox/Alum Hydrox 30 Ml Oral.Susp) 30 ml PO Q6H PRN PRN Reason: Heartburn/Nausea Last Admin: 02/15/22 16:17 Dose: 30 ml Albuterol Sulfate (Albuterol Sulfate 90 Mcg 18 Gm Inhaler) 1 puff INHALE Q4H PRN PRN Reason: wheezing Divalproex Sodium (Divalproex Sodium Er 500 Mg Tab.Er.24h) 1,000 mg PO BEDTIME [facility] Last Admin: 02/18/22 20:49 Dose: 1,000 mg Fluticasone Propionate (Fluticasone Propionate Nasal 16 Gm [place]) 1 spray NOSTRIL-B BID [facility] Last Admin: 02/19/22 09:18 Dose: Not Given Lisinopril (Lisinopril 40 Mg Tablet) 40 mg PO DAILY [facility] Last Admin: 02/19/22 09:15 Dose: 40 mg Loratadine (Loratadine 10 Mg Tablet) 10 mg PO DAILY [facility] Last Admin: 02/19/22 09:15 Dose: 10 mg Magnesium Hydroxide (Milk Of Magnesia 30 Ml Oral.Susp) 30 ml PO DAILY PRN PRN Reason: Constipation Mirtazapine (Mirtazapine 7.5 Mg Tablet) 7.5 mg PO BEDTIME [facility] Last Admin: 02/18/22 20:50 Dose: 7.5 mg Multivitamins/Vitamin C (Multivitamin Tablet) 1 tab PO DAILY [facility] Last Admin: 02/19/22 09:15 Dose: 1 tab Omeprazole (Omeprazole 20 Mg Capsule.Dr) 20 mg PO DAILY@0630 [facility] Last Admin: 02/19/22 05:33 Dose: 20 mg Phenytoin Sodium (Phenytoin Sodium Extended 100 Mg Capsule) 300 mg PO BEDTIME [facility] Last Admin: 02/18/22 20:49 Dose: 300 mg Risperidone (Risperidone 0.5 Mg Tablet) 0.5 mg PO BEDTIME [facility] Last Admin: 02/18/22 20:49 Dose: 0.5 mg Topiramate (Topiramate 25 Mg Tablet) 75 mg PO BID [facility] Last Admin: 02/19/22 09:15 Dose: 75 mg Allergies Allergies Allergy/AdvReac Type Severity Reaction Status Date / Time Sulfa (Sulfonamide Allergy Unknown Verified 02/13/22 17:27 Antibiotics) sulfamethoxazole Allergy Unknown Verified 02/13/22 17:27 [From Sulfamethoxazole-Trimethoprim] trimethoprim Allergy Unknown Verified 02/13/22 17:27 [From Sulfamethoxazole-Trimethoprim] Assessment & Plan Assessment & Plan (1) Epilepsy: Status: Acute Code(s): G40.909 - Epilepsy, unspecified, not intractable, without status epilepticus Plan A 71 years old lady with PMH of epilepsy, anxiety, depression among others who presents to the inpatient [facility] for anorexia. Anorexia Evaluation per Psychiatry team Hypertension continue lisinopril Seizure disorder continue Depakote, Dilantin and Topamax I spent ___20___ minutes with the patient and/or on the patient floor today, greater than?50% of which was spent counseling/coordinating care. Reason for contiued inpatient stay Substantial Risk for: inability to function, rapid decompensation and med/psych decompensation
[2022-02-19 18:00] VITALS: BP 120/72; PULSE 91; RESP 18; TEMP 37.1; O2SAT 98
[2022-02-19] MEDS: Divalproex Sodium ER 500 MG TAB.ER.24H 1000 MG PO (21:12)
[2022-02-19] MEDS: Phenytoin Sodium Extended 100 MG CAPSULE 300 MG PO (21:13)
[2022-02-19] MEDS: risperiDONE 0.5 MG TABLET PO (21:13)
[2022-02-19] MEDS: Mirtazapine 7.5 MG TABLET PO (21:13)
[2022-02-19] MEDS: Acetaminophen 325 MG TABLET 650 MG PO (21:14)
[2022-02-20 06:00] VITALS: BP 115/67; PULSE 76; RESP 16; TEMP 37.2; O2SAT 97
[2022-02-20] MEDS: Omeprazole 20 MG CAPSULE.DR PO (06:26)
[2022-02-20] MEDS: lisinopriL 40 MG TABLET PO (09:27)
[2022-02-20] MEDS: Topiramate 25 MG TABLET 75 MG PO ×2 (09:27→20:27)
[2022-02-20] MEDS: Multivitamin TABLET 1 TAB PO (09:27)
[2022-02-20] MEDS: Loratadine 10 MG TABLET PO (09:27)
[2022-02-20] MEDS: Acetaminophen 325 MG TABLET 650 MG PO ×2 (12:23→20:28)
--- NOTE | 2022-02-20 14:12 | P.PNPSI_ITS ---
Subjective Subjective Date of Service: 02/20/22 Reason For Visit: depression/ failure to thrive Subjective Notes: Conditional Voluntary Interim History: The nursing staff reports the patient refused to have a shower yesterday but she is able to do all her ADL less without any problems. She stated that she has seizures at night but there is no evidence of that. She is between 60-80% of her meals per day. We will follow her weight every 3 days. On interview the patient denies new problems she somatically preoccupied but no safety concerns; today on good spirits, she is aware that we will have a providers meeting next week for discharge planning. Mental Status Exam Mental Status Exam Patient Appearance: Well Grooomed Patient Orientation: Person and Situation Level of Consciousness: Awake Patient Behavior: Appropriate and Guarded Mood Description: Withdrawn and Anxious Affect Description: Calm Patient Cognition Impaired: No Ability to Follow Directions: Good Speech Pattern: Clear Hallucinations: None Delusions: Not Present Thought Process: Distracted Thought Content: positive for Obsessional Thoughts and positive for Circumstantial Judgement: Fair Diagnostics Vital Signs (24Hr): Vital Signs - 24 hr 02/19/22 18:00 02/20/22 06:00 Temperature 98.7 F 98.9 F Pulse Rate 91 76 Respiratory Rate 18 16 Blood Pressure 120/72 115/67 Pulse Oximetry 98 97 Oxygen Delivery Method Room Air Room Air BMI result Body Mass Index 24.0 Labs Results: 02/16/22 08:42 02/16/22 08:42 Medications Medications Current Medications Acetaminophen (Acetaminophen 325 Mg Tablet) 650 mg PO Q6H PRN PRN Reason: Headache/Pain Mild Scale (1-3) Last Admin: 02/20/22 12:23 Dose: 650 mg Al Hydroxide/Mg Hydroxide (Magnesium Hydrox/Alum Hydrox 30 Ml Oral.Susp) 30 ml PO Q6H PRN PRN Reason: Heartburn/Nausea Last Admin: 02/15/22 16:17 Dose: 30 ml Albuterol Sulfate (Albuterol Sulfate 90 Mcg 18 Gm Inhaler) 1 puff INHALE Q4H PRN PRN Reason: wheezing Divalproex Sodium (Divalproex Sodium Er 500 Mg Tab.Er.24h) 1,000 mg PO BEDTIME [facility] Last Admin: 02/19/22 21:12 Dose: 1,000 mg Fluticasone Propionate (Fluticasone Propionate Nasal 16 Gm [place]) 1 spray NOSTRIL-B BID [facility] Last Admin: 02/20/22 10:23 Dose: Not Given Lisinopril (Lisinopril 40 Mg Tablet) 40 mg PO DAILY [facility] Last Admin: 02/20/22 09:27 Dose: 40 mg Loratadine (Loratadine 10 Mg Tablet) 10 mg PO DAILY [facility] Last Admin: 02/20/22 09:27 Dose: 10 mg Magnesium Hydroxide (Milk Of Magnesia 30 Ml Oral.Susp) 30 ml PO DAILY PRN PRN Reason: Constipation Mirtazapine (Mirtazapine 7.5 Mg Tablet) 7.5 mg PO BEDTIME [facility] Last Admin: 02/19/22 21:13 Dose: 7.5 mg Multivitamins/Vitamin C (Multivitamin Tablet) 1 tab PO DAILY [facility] Last Admin: 02/20/22 09:27 Dose: 1 tab Omeprazole (Omeprazole 20 Mg Capsule.Dr) 20 mg PO DAILY@0630 [facility] Last Admin: 02/20/22 06:26 Dose: 20 mg Phenytoin Sodium (Phenytoin Sodium Extended 100 Mg Capsule) 300 mg PO BEDTIME [facility] Last Admin: 02/19/22 21:13 Dose: 300 mg Risperidone (Risperidone 0.5 Mg Tablet) 0.5 mg PO BEDTIME [facility] Last Admin: 02/19/22 21:13 Dose: 0.5 mg Topiramate (Topiramate 25 Mg Tablet) 75 mg PO BID [facility] Last Admin: 02/20/22 09:27 Dose: 75 mg Allergies Allergies Allergy/AdvReac Type Severity Reaction Status Date / Time Sulfa (Sulfonamide Allergy Unknown Verified 02/13/22 17:27 Antibiotics) sulfamethoxazole Allergy Unknown Verified 02/13/22 17:27 [From Sulfamethoxazole-Trimethoprim] trimethoprim Allergy Unknown Verified 02/13/22 17:27 [From Sulfamethoxazole-Trimethoprim] Assessment & Plan Assessment & Plan (1) Epilepsy: Status: Acute Code(s): G40.909 - Epilepsy, unspecified, not intractable, without status epilepticus Plan A 71 years old lady with PMH of epilepsy, anxiety, depression among others who presents to the inpatient [facility] for anorexia. Anorexia Evaluation per Psychiatry team Hypertension continue lisinopril Seizure disorder continue Depakote, Dilantin and Topamax I spent __20____ minutes with the patient and/or on the patient floor today, greater than?50% of which was spent counseling/coordinating care. Reason for contiued inpatient stay Substantial Risk for: inability to function, rapid decompensation and med/psych decompensation
--- NOTE | 2022-02-20 14:30 | MHC.CLN ---
F/U DIET=REGULAR, GLUTEN FREE, LACTOSE FREE. PATIENT WITH LIMITED FOODS SHE WILL EAT. REINFORCED IDEA TO START WITH ONE FOOD SHE LIKES AND ORDER THAT. STATED AGAIN THAT HAS NO APPETITE AND DOES NOT FEEL HUNGRY. CONTINUE TO FOLLOW FOR INTAKE AND PREFERENCES.
[2022-02-20 19:45] VITALS: BP 155/78; PULSE 74; RESP 16; TEMP 36.7; O2SAT 100
[2022-02-20] MEDS: Phenytoin Sodium Extended 100 MG CAPSULE 300 MG PO (20:27)
[2022-02-20] MEDS: Divalproex Sodium ER 500 MG TAB.ER.24H 1000 MG PO (20:27)
[2022-02-20] MEDS: Mirtazapine 7.5 MG TABLET PO (20:28)
[2022-02-20] MEDS: risperiDONE 0.5 MG TABLET PO (20:28)
[2022-02-21] MEDS: Omeprazole 20 MG CAPSULE.DR PO (05:22)
[2022-02-21 06:00] VITALS: BP 123/72; PULSE 95; RESP 17; TEMP 36.2; O2SAT 98
[2022-02-21] MEDS: lisinopriL 40 MG TABLET PO (08:34)
[2022-02-21] MEDS: Topiramate 25 MG TABLET 75 MG PO ×2 (08:34→21:32)
[2022-02-21] MEDS: Loratadine 10 MG TABLET PO (08:34)
[2022-02-21] MEDS: Multivitamin TABLET 1 TAB PO (08:34)
--- NOTE | 2022-02-21 12:26 | P.PNPSI_ITS ---
Subjective Subjective Date of Service: 02/21/22 Reason For Visit: depression/ failure to thrive Subjective Notes: Conditional Voluntary Interim History: Pt reports she is doing fairly well given circumstances. Pt explains that she was not eating at [facility] but does not think it was due to her mood. Pt states is uncomfortable to be in hospital due to restriction (mostly not being able to have her phone with her) and having to ask for help. She denies SI/HI. She thin ks [facility] was trying to get rid of me by sending her to the hospital. Per nursing, she did sleep and showered taday. Medication Compliance: Yes Side effects from medications: No Review of Systems Review of Systems No fever, chills or weakness No chest pain, palpitation No shortness of breath or coughing No abdominal pain, nausea or vomiting No urinary symptoms No any rash or wounds Constitutional: Reports anorexia, Reports fatigue, Reports lethargy, Reports malaise, Reports poor appetite, Reports weakness and Reports weight loss Reports vertigo and Reports odynophagia Cardiovascular: Reports rapid heart rate and Reports lightheadedness Gastrointestinal: Reports odynophagia Reports vertigo and Reports weakness Endocrine: Reports fatigue Mental Status Exam Mental Status Exam Patient Appearance: Well Grooomed Patient Orientation: Person and Situation Level of Consciousness: Awake Patient Behavior: Appropriate and Guarded Mood Description: Withdrawn and Anxious Affect Description: Calm Patient Cognition Impaired: No Ability to Follow Directions: Good Speech Pattern: Clear Diagnostics Vital Signs (24Hr): Vital Signs - 24 hr 02/21/22 18:00 02/22/22 06:00 Temperature 98.4 F 96.9 F Pulse Rate 84 88 Respiratory Rate 15 17 Blood Pressure 114/65 118/66 Pulse Oximetry 97 98 Oxygen Delivery Method Room Air Room Air BMI result Body Mass Index 24.0 Labs Results: 02/16/22 08:42 02/16/22 08:42 Medications Medications Current Medications Acetaminophen (Acetaminophen 325 Mg Tablet) 650 mg PO Q6H PRN PRN Reason: Headache/Pain Mild Scale (1-3) Last Admin: 02/21/22 21:50 Dose: 650 mg Al Hydroxide/Mg Hydroxide (Magnesium Hydrox/Alum Hydrox 30 Ml Oral.Susp) 30 ml PO Q6H PRN PRN Reason: Heartburn/Nausea Last Admin: 02/15/22 16:17 Dose: 30 ml Albuterol Sulfate (Albuterol Sulfate 90 Mcg 18 Gm Inhaler) 1 puff INHALE Q4H PRN PRN Reason: wheezing Divalproex Sodium (Divalproex Sodium Er 500 Mg Tab.Er.24h) 1,000 mg PO BEDTIME [facility] Last Admin: 02/21/22 21:32 Dose: 1,000 mg Fluticasone Propionate (Fluticasone Propionate Nasal 16 Gm [place]) 1 spray NOSTRIL-B BID [facility] Last Admin: 02/22/22 11:22 Dose: Not Given Lisinopril (Lisinopril 40 Mg Tablet) 40 mg PO DAILY [facility] Last Admin: 02/22/22 08:14 Dose: 40 mg Loratadine (Loratadine 10 Mg Tablet) 10 mg PO DAILY [facility] Last Admin: 02/22/22 08:14 Dose: 10 mg Magnesium Hydroxide (Milk Of Magnesia 30 Ml Oral.Susp) 30 ml PO DAILY PRN PRN Reason: Constipation Mirtazapine (Mirtazapine 7.5 Mg Tablet) 7.5 mg PO BEDTIME [facility] Last Admin: 02/21/22 21:32 Dose: 7.5 mg Multivitamins/Vitamin C (Multivitamin Tablet) 1 tab PO DAILY [facility] Last Admin: 02/22/22 08:14 Dose: 1 tab Omeprazole (Omeprazole 20 Mg Capsule.Dr) 20 mg PO DAILY@0630 [facility] Last Admin: 02/22/22 06:23 Dose: 20 mg Phenytoin Sodium (Phenytoin Sodium Extended 100 Mg Capsule) 300 mg PO BEDTIME [facility] Last Admin: 02/21/22 21:32 Dose: 300 mg Risperidone (Risperidone 0.5 Mg Tablet) 0.5 mg PO BEDTIME [facility] Last Admin: 02/21/22 21:32 Dose: 0.5 mg Topiramate (Topiramate 25 Mg Tablet) 75 mg PO BID [facility] Last Admin: 02/22/22 08:14 Dose: 75 mg Allergies Allergies Allergy/AdvReac Type Severity Reaction Status Date / Time Sulfa (Sulfonamide Allergy Unknown Verified 02/13/22 17:27 Antibiotics) sulfamethoxazole Allergy Unknown Verified 02/13/22 17:27 [From Sulfamethoxazole-Trimethoprim] trimethoprim Allergy Unknown Verified 02/13/22 17:27 [From Sulfamethoxazole-Trimethoprim] Assessment & Plan Assessment & Plan (1) Epilepsy: Status: Acute Code(s): G40.909 - Epilepsy, unspecified, not intractable, without status epilepticus Plan A 71 years old lady with PMH of epilepsy, anxiety, depression among others who presents to the inpatient [facility] for anorexia. Anorexia Evaluation per Psychiatry team Hypertension continue lisinopril Seizure disorder continue Depakote, Dilantin and Topamax 02/21- continue current medications. I spent minutes with the patient and/or on the patient floor today, greater than?50% of which was spent counseling/coordinating care. Reason for contiued inpatient stay Substantial Risk for: inability to function
[2022-02-21 18:00] VITALS: BP 114/65; PULSE 84; RESP 15; TEMP 36.9; O2SAT 97
[2022-02-21] MEDS: risperiDONE 0.5 MG TABLET PO (21:32)
[2022-02-21] MEDS: Phenytoin Sodium Extended 100 MG CAPSULE 300 MG PO (21:32)
[2022-02-21] MEDS: Mirtazapine 7.5 MG TABLET PO (21:32)
[2022-02-21] MEDS: Divalproex Sodium ER 500 MG TAB.ER.24H 1000 MG PO (21:32)
[2022-02-21] MEDS: Acetaminophen 325 MG TABLET 650 MG PO (21:50)
[2022-02-22 06:00] VITALS: BP 118/66; PULSE 88; RESP 17; TEMP 36.1; O2SAT 98; BMI 24.0
[2022-02-22] MEDS: Omeprazole 20 MG CAPSULE.DR PO (06:23)
[2022-02-22] MEDS: Multivitamin TABLET 1 TAB PO (08:14)
[2022-02-22] MEDS: Loratadine 10 MG TABLET PO (08:14)
[2022-02-22] MEDS: lisinopriL 40 MG TABLET PO (08:14)
[2022-02-22] MEDS: Topiramate 25 MG TABLET 75 MG PO ×2 (08:14→20:44)
--- NOTE | 2022-02-22 14:33 | P.PNPSI_ITS ---
Subjective Subjective Date of Service: 02/22/22 Reason For Visit: depression/ failure to thrive Subjective Notes: Conditional Voluntary Interim History: Pt reports she slept well. She continues to appear disheveled. She denies symptoms of depression or anxious mood. Pt reports she is waiting for meeting next week, hopes to go somewhere else. She denies SI/HI. Per nursing, no behavioral concerns. Medication Compliance: Yes Side effects from medications: No Attending Groups: No Review of Systems Review of Systems No fever, chills or weakness No chest pain, palpitation No shortness of breath or coughing No abdominal pain, nausea or vomiting No urinary symptoms No any rash or wounds Constitutional: Reports anorexia, Reports fatigue, Reports lethargy, Reports malaise, Reports poor appetite, Reports weakness and Reports weight loss Reports vertigo and Reports odynophagia Cardiovascular: Reports rapid heart rate and Reports lightheadedness Gastrointestinal: Reports odynophagia Reports vertigo and Reports weakness Endocrine: Reports fatigue Mental Status Exam Mental Status Exam Patient Appearance: Well Grooomed Patient Orientation: Person and Situation Level of Consciousness: Awake Patient Behavior: Appropriate and Guarded Mood Description: Withdrawn and Anxious Affect Description: Calm Patient Cognition Impaired: No Ability to Follow Directions: Good Speech Pattern: Clear Diagnostics Vital Signs (24Hr): Vital Signs - 24 hr 02/21/22 18:00 02/22/22 06:00 Temperature 98.4 F 96.9 F Pulse Rate 84 88 Respiratory Rate 15 17 Blood Pressure 114/65 118/66 Pulse Oximetry 97 98 Oxygen Delivery Method Room Air Room Air BMI result Body Mass Index 24.0 Labs Results: 02/16/22 08:42 02/16/22 08:42 Medications Medications Current Medications Acetaminophen (Acetaminophen 325 Mg Tablet) 650 mg PO Q6H PRN PRN Reason: Headache/Pain Mild Scale (1-3) Last Admin: 02/21/22 21:50 Dose: 650 mg Al Hydroxide/Mg Hydroxide (Magnesium Hydrox/Alum Hydrox 30 Ml Oral.Susp) 30 ml PO Q6H PRN PRN Reason: Heartburn/Nausea Last Admin: 02/15/22 16:17 Dose: 30 ml Albuterol Sulfate (Albuterol Sulfate 90 Mcg 18 Gm Inhaler) 1 puff INHALE Q4H PRN PRN Reason: wheezing Divalproex Sodium (Divalproex Sodium Er 500 Mg Tab.Er.24h) 1,000 mg PO BEDTIME [facility] Last Admin: 02/21/22 21:32 Dose: 1,000 mg Fluticasone Propionate (Fluticasone Propionate Nasal 16 Gm [place]) 1 spray NOSTRIL-B BID [facility] Last Admin: 02/22/22 11:22 Dose: Not Given Lisinopril (Lisinopril 40 Mg Tablet) 40 mg PO DAILY [facility] Last Admin: 02/22/22 08:14 Dose: 40 mg Loratadine (Loratadine 10 Mg Tablet) 10 mg PO DAILY [facility] Last Admin: 02/22/22 08:14 Dose: 10 mg Magnesium Hydroxide (Milk Of Magnesia 30 Ml Oral.Susp) 30 ml PO DAILY PRN PRN Reason: Constipation Mirtazapine (Mirtazapine 7.5 Mg Tablet) 7.5 mg PO BEDTIME [facility] Last Admin: 02/21/22 21:32 Dose: 7.5 mg Multivitamins/Vitamin C (Multivitamin Tablet) 1 tab PO DAILY [facility] Last Admin: 02/22/22 08:14 Dose: 1 tab Omeprazole (Omeprazole 20 Mg Capsule.Dr) 20 mg PO DAILY@0630 [facility] Last Admin: 02/22/22 06:23 Dose: 20 mg Phenytoin Sodium (Phenytoin Sodium Extended 100 Mg Capsule) 300 mg PO BEDTIME [facility] Last Admin: 02/21/22 21:32 Dose: 300 mg Risperidone (Risperidone 0.5 Mg Tablet) 0.5 mg PO BEDTIME [facility] Last Admin: 02/21/22 21:32 Dose: 0.5 mg Topiramate (Topiramate 25 Mg Tablet) 75 mg PO BID [facility] Last Admin: 02/22/22 08:14 Dose: 75 mg Allergies Allergies Allergy/AdvReac Type Severity Reaction Status Date / Time Sulfa (Sulfonamide Allergy Unknown Verified 02/13/22 17:27 Antibiotics) sulfamethoxazole Allergy Unknown Verified 02/13/22 17:27 [From Sulfamethoxazole-Trimethoprim] trimethoprim Allergy Unknown Verified 02/13/22 17:27 [From Sulfamethoxazole-Trimethoprim] Assessment & Plan Assessment & Plan (1) Epilepsy: Status: Acute Code(s): G40.909 - Epilepsy, unspecified, not intractable, without status epilepticus Plan A 71 years old lady with PMH of epilepsy, anxiety, depression among others who presents to the inpatient [facility] for anorexia. Anorexia Evaluation per Psychiatry team Hypertension continue lisinopril Seizure disorder continue Depakote, Dilantin and Topamax 02/21- continue current medications. 02/22 continue current medications. I spent minutes with the patient and/or on the patient floor today, greater than?50% of which was spent counseling/coordinating care. Reason for contiued inpatient stay Substantial Risk for: inability to function
[2022-02-22 18:00] VITALS: BP 131/74; PULSE 94; RESP 20; TEMP 36.9; O2SAT 93
[2022-02-22] MEDS: Divalproex Sodium ER 500 MG TAB.ER.24H 1000 MG PO (20:43)
[2022-02-22] MEDS: Phenytoin Sodium Extended 100 MG CAPSULE 300 MG PO (20:44)
[2022-02-22] MEDS: risperiDONE 0.5 MG TABLET PO (20:44)
[2022-02-22] MEDS: Acetaminophen 325 MG TABLET 650 MG PO (20:44)
[2022-02-22] MEDS: Mirtazapine 7.5 MG TABLET PO (20:44)
[2022-02-23 06:00] VITALS: BP 134/74; PULSE 96; RESP 14; TEMP 36.2; O2SAT 97; BMI 24.1
[2022-02-23] MEDS: Omeprazole 20 MG CAPSULE.DR PO (06:06)
[2022-02-23] MEDS: Topiramate 25 MG TABLET 75 MG PO ×2 (09:40→21:01)
[2022-02-23] MEDS: lisinopriL 40 MG TABLET PO (09:40)
[2022-02-23] MEDS: Loratadine 10 MG TABLET PO (09:40)
[2022-02-23] MEDS: Multivitamin TABLET 1 TAB PO (09:40)
--- NOTE | 2022-02-23 11:47 | MHC.CLN ---
F/U DIET=REGULAR, GLUTEN FREE, LACTOSE FREE. PATIENT WITH LIMITED FOODS SHE WILL EAT. HAS HOSPTIAL MENU IN ROOM WITH ALL FOODS OFFERED. WORKS WITH STAFF FOR FOOD CHOICES. INTAKE USUALLY POOR/FAIR. RD TO FOLLOW TWICE WEEKLY.
--- NOTE | 2022-02-23 15:30 | P.PNPSI_ITS ---
Subjective Subjective Date of Service: 02/23/22 Reason For Visit: depression/ failure to thrive Subjective Notes: Conditional Voluntary Interim History: The nursing staff reported the patient has been mostly in her room, isolated she slept well. On interview the patient denies new symptoms states somatically preoccupied no safety concerns at this moment, fully compliant with treatment. Mental Status Exam Mental Status Exam Patient Appearance: Well Grooomed Patient Orientation: Person and Situation Level of Consciousness: Awake Patient Behavior: Cooperative Mood Description: Withdrawn Affect Description: Constricted Patient Cognition Impaired: No Ability to Follow Directions: Good Speech Pattern: Clear Hallucinations: None Delusions: Not Present Thought Process: Distracted Thought Content: positive for Circumstantial Judgement: Fair Diagnostics Vital Signs (24Hr): Vital Signs - 24 hr 02/22/22 18:00 02/23/22 06:00 Temperature 98.5 F 97.1 F Pulse Rate 94 96 Respiratory Rate 20 14 Blood Pressure 131/74 134/74 Pulse Oximetry 93 97 Oxygen Delivery Method Room Air Room Air BMI result Body Mass Index 24.1 Labs Results: 02/16/22 08:42 02/16/22 08:42 Medications Medications Current Medications Acetaminophen (Acetaminophen 325 Mg Tablet) 650 mg PO Q6H PRN PRN Reason: Headache/Pain Mild Scale (1-3) Last Admin: 02/22/22 20:44 Dose: 650 mg Al Hydroxide/Mg Hydroxide (Magnesium Hydrox/Alum Hydrox 30 Ml Oral.Susp) 30 ml PO Q6H PRN PRN Reason: Heartburn/Nausea Last Admin: 02/15/22 16:17 Dose: 30 ml Albuterol Sulfate (Albuterol Sulfate 90 Mcg 18 Gm Inhaler) 1 puff INHALE Q4H PRN PRN Reason: wheezing Divalproex Sodium (Divalproex Sodium Er 500 Mg Tab.Er.24h) 1,000 mg PO BEDTIME [facility] Last Admin: 02/22/22 20:43 Dose: 1,000 mg Fluticasone Propionate (Fluticasone Propionate Nasal 16 Gm [place]) 1 spray NOSTRIL-B BID [facility] Last Admin: 02/23/22 10:01 Dose: Not Given Lisinopril (Lisinopril 40 Mg Tablet) 40 mg PO DAILY [facility] Last Admin: 02/23/22 09:40 Dose: 40 mg Loratadine (Loratadine 10 Mg Tablet) 10 mg PO DAILY [facility] Last Admin: 02/23/22 09:40 Dose: 10 mg Magnesium Hydroxide (Milk Of Magnesia 30 Ml Oral.Susp) 30 ml PO DAILY PRN PRN Reason: Constipation Mirtazapine (Mirtazapine 7.5 Mg Tablet) 7.5 mg PO BEDTIME [facility] Last Admin: 02/22/22 20:44 Dose: 7.5 mg Multivitamins/Vitamin C (Multivitamin Tablet) 1 tab PO DAILY [facility] Last Admin: 02/23/22 09:40 Dose: 1 tab Omeprazole (Omeprazole 20 Mg Capsule.Dr) 20 mg PO DAILY@0630 [facility] Last Admin: 02/23/22 06:06 Dose: 20 mg Phenytoin Sodium (Phenytoin Sodium Extended 100 Mg Capsule) 300 mg PO BEDTIME [facility] Last Admin: 02/22/22 20:44 Dose: 300 mg Risperidone (Risperidone 0.5 Mg Tablet) 0.5 mg PO BEDTIME [facility] Last Admin: 02/22/22 20:44 Dose: 0.5 mg Topiramate (Topiramate 25 Mg Tablet) 75 mg PO BID [facility] Last Admin: 02/23/22 09:40 Dose: 75 mg Allergies Allergies Allergy/AdvReac Type Severity Reaction Status Date / Time Sulfa (Sulfonamide Allergy Unknown Verified 02/13/22 17:27 Antibiotics) sulfamethoxazole Allergy Unknown Verified 02/13/22 17:27 [From Sulfamethoxazole-Trimethoprim] trimethoprim Allergy Unknown Verified 02/13/22 17:27 [From Sulfamethoxazole-Trimethoprim] Assessment & Plan Assessment & Plan (1) Epilepsy: Status: Acute Code(s): G40.909 - Epilepsy, unspecified, not intractable, without status epilepticus Plan A 71 years old lady with PMH of epilepsy, anxiety, depression among others who presents to the inpatient [facility] for anorexia. Anorexia Evaluation per Psychiatry team Hypertension continue lisinopril Seizure disorder continue Depakote, Dilantin and Topamax I spent __20____ minutes with the patient and/or on the patient floor today, greater than?50% of which was spent counseling/coordinating care. Reason for contiued inpatient stay Substantial Risk for: inability to function, rapid decompensation and med/psych decompensation
[2022-02-23 19:25] VITALS: BP 120/76; PULSE 98; RESP 16; TEMP 36.6; O2SAT 98
[2022-02-23] MEDS: Phenytoin Sodium Extended 100 MG CAPSULE 300 MG PO (21:00)
[2022-02-23] MEDS: Mirtazapine 7.5 MG TABLET PO (21:01)
[2022-02-23] MEDS: risperiDONE 0.5 MG TABLET PO (21:02)
[2022-02-23] MEDS: Divalproex Sodium ER 500 MG TAB.ER.24H 1000 MG PO (21:02)
[2022-02-24 06:00] VITALS: BP 141/61; PULSE 83; RESP 16; TEMP 36.3; O2SAT 98; BMI 24.1
[2022-02-24] MEDS: Omeprazole 20 MG CAPSULE.DR PO (06:19)
[2022-02-24] MEDS: Topiramate 25 MG TABLET 75 MG PO ×2 (10:15→21:23)
[2022-02-24] MEDS: lisinopriL 40 MG TABLET PO (10:15)
[2022-02-24] MEDS: Multivitamin TABLET 1 TAB PO (10:15)
[2022-02-24] MEDS: Loratadine 10 MG TABLET PO (10:15)
--- NOTE | 2022-02-24 16:55 | P.PNPSI_ITS ---
Subjective Subjective Date of Service: 02/24/22 Reason For Visit: depression/ failure to thrive Subjective Notes: Conditional Voluntary Interim History: The nursing staff reported the patient has taking all her medications she slept 7 hours and she was minimally interacting with other peers. The physical therapy came and visited her with no changes. On interview the patient denies new symptoms. Mental Status Exam Mental Status Exam Patient Appearance: Well Grooomed Patient Orientation: Person and Situation Level of Consciousness: Awake Patient Behavior: Cooperative Mood Description: Constricted Affect Description: Calm Patient Cognition Impaired: Yes Ability to Follow Directions: Good Speech Pattern: Clear Hallucinations: None Delusions: Not Present Thought Process: Linear Thought Content: positive for Circumstantial Judgement: Fair Diagnostics Vital Signs (24Hr): Vital Signs - 24 hr 02/23/22 19:25 02/24/22 06:00 Temperature 97.8 F 97.3 F Pulse Rate 98 83 Respiratory Rate 16 16 Blood Pressure 120/76 141/61 H Pulse Oximetry 98 98 Oxygen Delivery Method Room Air Room Air BMI result Body Mass Index 24.1 Labs Results: 02/16/22 08:42 02/16/22 08:42 Medications Medications Current Medications Acetaminophen (Acetaminophen 325 Mg Tablet) 650 mg PO Q6H PRN PRN Reason: Headache/Pain Mild Scale (1-3) Last Admin: 02/22/22 20:44 Dose: 650 mg Al Hydroxide/Mg Hydroxide (Magnesium Hydrox/Alum Hydrox 30 Ml Oral.Susp) 30 ml PO Q6H PRN PRN Reason: Heartburn/Nausea Last Admin: 02/15/22 16:17 Dose: 30 ml Albuterol Sulfate (Albuterol Sulfate 90 Mcg 18 Gm Inhaler) 1 puff INHALE Q4H PRN PRN Reason: wheezing Divalproex Sodium (Divalproex Sodium Er 500 Mg Tab.Er.24h) 1,000 mg PO BEDTIME [facility] Last Admin: 02/23/22 21:02 Dose: 1,000 mg Fluticasone Propionate (Fluticasone Propionate Nasal 16 Gm [place]) 1 spray NOSTRIL-B BID [facility] Last Admin: 02/24/22 10:15 Dose: Not Given Lisinopril (Lisinopril 40 Mg Tablet) 40 mg PO DAILY [facility] Last Admin: 02/24/22 10:15 Dose: 40 mg Loratadine (Loratadine 10 Mg Tablet) 10 mg PO DAILY [facility] Last Admin: 02/24/22 10:15 Dose: 10 mg Magnesium Hydroxide (Milk Of Magnesia 30 Ml Oral.Susp) 30 ml PO DAILY PRN PRN Reason: Constipation Mirtazapine (Mirtazapine 7.5 Mg Tablet) 7.5 mg PO BEDTIME [facility] Last Admin: 02/23/22 21:01 Dose: 7.5 mg Multivitamins/Vitamin C (Multivitamin Tablet) 1 tab PO DAILY [facility] Last Admin: 02/24/22 10:15 Dose: 1 tab Omeprazole (Omeprazole 20 Mg Capsule.Dr) 20 mg PO DAILY@0630 [facility] Last Admin: 02/24/22 06:19 Dose: 20 mg Phenytoin Sodium (Phenytoin Sodium Extended 100 Mg Capsule) 300 mg PO BEDTIME [facility] Last Admin: 02/23/22 21:00 Dose: 300 mg Risperidone (Risperidone 0.5 Mg Tablet) 0.5 mg PO BEDTIME [facility] Last Admin: 02/23/22 21:02 Dose: 0.5 mg Topiramate (Topiramate 25 Mg Tablet) 75 mg PO BID [facility] Last Admin: 02/24/22 10:15 Dose: 75 mg Allergies Allergies Allergy/AdvReac Type Severity Reaction Status Date / Time Sulfa (Sulfonamide Allergy Unknown Verified 02/13/22 17:27 Antibiotics) sulfamethoxazole Allergy Unknown Verified 02/13/22 17:27 [From Sulfamethoxazole-Trimethoprim] trimethoprim Allergy Unknown Verified 02/13/22 17:27 [From Sulfamethoxazole-Trimethoprim] Assessment & Plan Assessment & Plan (1) Epilepsy: Status: Acute Code(s): G40.909 - Epilepsy, unspecified, not intractable, without status epilepticus Plan A 71 years old lady with PMH of epilepsy, anxiety, depression among others who presents to the inpatient [facility] for anorexia. Anorexia Evaluation per Psychiatry team Hypertension continue lisinopril Seizure disorder continue Depakote, Dilantin and Topamax I spent ___20___ minutes with the patient and/or on the patient floor today, greater than?50% of which was spent counseling/coordinating care. Reason for contiued inpatient stay Substantial Risk for: inability to function, rapid decompensation and med/psych decompensation
[2022-02-24 21:20] VITALS: BP 127/76; PULSE 88; RESP 17; TEMP 36.9; O2SAT 99
[2022-02-24] MEDS: Phenytoin Sodium Extended 100 MG CAPSULE 300 MG PO (21:23)
[2022-02-24] MEDS: Divalproex Sodium ER 500 MG TAB.ER.24H 1000 MG PO (21:23)
[2022-02-24] MEDS: risperiDONE 0.5 MG TABLET PO (21:23)
[2022-02-24] MEDS: Mirtazapine 7.5 MG TABLET PO (21:23)
[2022-02-25] MEDS: Omeprazole 20 MG CAPSULE.DR PO (05:37)
[2022-02-25 06:00] VITALS: BP 116/64; PULSE 64; RESP 16; TEMP 36.7; O2SAT 97
[2022-02-25] MEDS: lisinopriL 40 MG TABLET PO (08:17)
[2022-02-25] MEDS: Topiramate 25 MG TABLET 75 MG PO (08:17)
[2022-02-25] MEDS: Loratadine 10 MG TABLET PO (08:17)
[2022-02-25] MEDS: Multivitamin TABLET 1 TAB PO (08:17)
[2022-02-25] MEDS: Acetaminophen 325 MG TABLET 650 MG PO (11:29)
--- NOTE | 2022-02-25 11:43 | P.DS_ITS ---
DS: Providers Provider Date of Service: 02/25/22 Date of admission: 02/13/22 17:01 Primary care physician: Unknown Physician Consults: 02/15/22 10:51 Consult to Hospitalist Routine Consulting Provider: Hospitalist Reason For Exam: admitted from another hospital Attending physician on discharge: Everardo Mackenzie DS: Diagnosis Discharge Diagnosis (1) Epilepsy: Status: Acute DS: Medications Discharge Medications Home Medications: Home Medications Medication Instructions Recorded Confirmed Depakote ER 1,000 mg PO 1XD 02/13/22 02/13/22 Dilantin Extended 300 mg PO 1XD 02/13/22 02/13/22 Flonase 50 mg 2XD 02/13/22 02/13/22 Protonix 40 mg PO 1XD 02/13/22 02/13/22 Topamax 75 mg PO 2XD 02/13/22 02/13/22 Ventolin HFA 90 mcg inhalation Q4H PRN wheezing 02/13/22 02/13/22 lisinopril 40 mg PO 1XD 02/13/22 02/13/22 loratadine 10 mg PO 1XD 02/13/22 02/13/22 risperidone 0.5 mg PO 1XD 02/13/22 02/13/22 Mental Status Exam Mental Status Exam Patient Appearance: Well Grooomed Patient Orientation: Person and Situation Level of Consciousness: Awake Patient Behavior: Cooperative Mood Description: Constricted Affect Description: Calm Patient Cognition Impaired: No Ability to Follow Directions: Good Speech Pattern: Clear Hallucinations: None Delusions: Not Present Thought Process: Distracted and Linear Thought Content: positive for Circumstantial Judgement: Fair DS: Summary Hospital Course Hospital Course: The patient was initially admitted for failure to thrive and mood symptoms. Please see the HPI note of the admission note for further details. On admission, the patient was assessed and she was upset that she was on a psychiatric unit not on a medical unit since her complains were mostly somatic all. She has several antiseizure medications and her Topamax was lowered since apparently her appetite was low. There were no evidence of seizures or pseudoseizures in the unit with the change of medications. When she was in the unit, the patient participated minimally on groups or any other therapeutic activities but she adamantly denies suicidal or homicidal ideation. We discussed at length about her that [place] restrictions and what it suits her and she was able to workout with Nutrition Service regarding her diet. Her weight remains stable. Since there were no safety concerns discharge planning was discussed. We had a family meeting with her other providers and they were concerned that the patient was not participating in groups but there were no suicidal, homicidal thoughts or inability to take care of herself. The patient was just anxious of getting COVID and while she was admitted in the unit there was a patient with COVID 19. Since there were no safety concerns discharge planning was discussed. Time spent discussing smoking cessation with patient: 3 to 10 minutes Status at Discharge Functional status at discharge: independent ambulation Overall status at discharge: patient is back to baseline Time Spent with Patient Time attestation: Total time spent providing and/or coordinating discharge services: Time spent: Less than 30 minutes Discharge Plan Discharge Patient Disposition: er [facility] Discharge Diagnosis: MOOD DISORDER. PERSONALITY DISORDER NOS Referrals: Physician,Unknown J [Primary Care Provider] - 1 Week Discharge Medications: New multivitamin [Daily-Sagar] Tablet 1 tab PO DAILY 30 Days Qty: 30 0RF topiramate 25 mg Tablet 75 mg PO BID 30 Days Qty: 180 0RF mirtazapine 7.5 mg Tablet 7.5 mg PO BEDTIME 30 Days Qty: 30 0RF Continued Protonix 40 mg 40 mg PO 1XD 30 Days Qty: 30 0RF Ventolin HFA 90 mcg 90 mcg inhalation Q4H PRN (Reason: wheezing) 30 Days Qty: 1 0RF lisinopril 40 mg 40 mg PO 1XD 30 Days Qty: 30 0RF loratadine 10 mg 10 mg PO 1XD 30 Days 0RF Changed Depakote ER 500 mg 1,000 mg PO BEDTIME 30 Days Qty: 60 0RF Rx Instructions: take at bedtime Dilantin Extended 300 mg 300 mg PO BEDTIME 30 Days Qty: 30 0RF Rx Instructions: take at night Flonase 50 mg 50 mg inhalation 2XD 30 Days Qty: 1 0RF risperidone 0.5 mg 0.5 mg PO BEDTIME 30 Days Qty: 30 0RF Rx Instructions: at bedtime Discontinued Topamax 25 mg 75 mg PO 2XD Discharge Orders: Discharge Order (Routine); Ordered 02/25/22 Ordered By: Everardo Mackenzie Diet: Advance to usual diet Activity on Discharge: As tolerated Stand Alone Forms: Patient Portal Discharge page Care Plan Goals: Care plan goals achieved in this admission Health Concerns: Continue with PCP as an outpatient Plan of Treatment: Continue as outpatient services Assessment: Adult female with several somatic complaints, stable for discharge
== END 2022-02-25 13:55 | DRG 881 ==
PROVIDERS: Psychiatry & Neurology Psychiatry; Admitting Provider Psychiatry & Neurology Psychiatry; Visit Provider Psychiatry & Neurology Psychiatry
DX: F32.9 Major depressive disorder, single episode, unspecified (principal); I10 Essential (primary) hypertension; R63.0 Anorexia; F41.9 Anxiety disorder, unspecified; G40.909 Epilepsy, unspecified, not intractable, without status epilepticus; Z20.822 Contact with and (suspected) exposure to COVID-19; R62.7 Adult failure to thrive; Z68.24 Body mass index [BMI] 24.0-24.9, adult; Z87.891 Personal history of nicotine dependence; Z88.2 Allergy status to sulfonamides; Z79.51 Long term (current) use of inhaled steroids; Z79.899 Other long term (current) drug therapy
CPT/HCPCS: 36415; 80053; 80061; 80076; 80164; 80185; 82140; 82607; 82746; 83036; 84443; 85025; 87635; 92610; 93005